=== PATIENT | male | born 1955 | race Two or more races ===

== ENCOUNTER 2019-03-31 14:53 | Emergency (ER) | payer MEDICAID ==
[~2019-03-31] VITALS: Ht 180.3 cm; Wt 65.8 kg
[2019-03-31 14:58] VITALS: BP 165/92
== END 2019-03-31 15:10 | disposition left against medical advice (07) ==
LOC: EDBD 14:53 → ER 14:53
DX: R13.10 Dysphagia, unspecified (principal); Z53.21 Procedure and treatment not carried out due to patient leaving prior to being seen by health care provider